=== PATIENT | male | born 1960 | race Caucasian/White ===

== ENCOUNTER 2019-08-21 07:15 | Emergency (ER) | payer OTHER ==
[~2019-08-21] VITALS: Ht 188 cm; Wt 117.9 kg
--- NOTE | 2019-08-21 07:27 | NUR ---
Dr Luevano at the bedside for MSE.
--- NOTE | 2019-08-21 08:20 | NUR ---
Patient discharged to home in stable conditon. Written and verbal after care instructions given. Patient verbalizes understanding of instructions.
[2019-08-21 08:21] VITALS: BP 143/78
== END 2019-08-21 08:21 | disposition home or self-care (01) ==
LOC: ER 07:15
DX: S52.501A Unspecified fracture of the lower end of right radius, initial encounter for closed fracture (principal); W19.XXXA Unspecified fall, initial encounter; Y93.89 Activity, other specified; Y92.89 Other specified places as the place of occurrence of the external cause; Y99.8 Other external cause status
CPT/HCPCS: 73110; A4663